=== PATIENT | female | born 1965 | race Caucasian/White ===

== ENCOUNTER → 2018-06-18 15:16 | Outpatient (CLI) | payer MEDICARE ==
[2014-11-18 13:13] VITALS: BMI 32.3
[~2018-06-18 15:16] MED LIST: DYAZIDE 37.5/251 CAP PO; EFFEXOR75 MG PO; ENDOCET 10-3251 TAB PO; KLONOPIN1 MG PO; NORCO 10/325 TA1 TA1 PO; OXYCONTIN15 MG PO; PERCOCET 10/3251 TA1 PO; PREVACID30 MG PO; PRINIVIL20 MG PO; PROTONIX40 MG PO; TOPROL XL200 MG PO; ZOFRAN8 MG PO
[2018-06-18 17:32] LABS: BASOPHILS 0.3 % (0-2); EOSINOPHILS 1.1 % (0-7); HEMOGLOBIN 13.6 g/dL (12-16); IMMATURE GRANULOCYTES 0.2 % (0-5); LYMPHOCYTES 38.9 % (15-50); MCH 29.5 pg (26.0-34.0); MCV 86.8 fL (80.0-100.0); MEAN PLATELET VOLUME 10.6 fL (7.4-10.4); NEUTROPHILS 54.5 % (40-80); PLATELET COUNT 194 10x3/uL (130-400); RBC 4.61 10x6/uL (4.00-5.40); RDW 12.7 % (11.5-14.5); WBC 6.3 10x3/uL (4.8-10.8)
[2018-06-18 18:41] LABS: ERYTHROCYTE SEDIMENTATION RATE 10 mm/hr (0-30)
== END | disposition home or self-care (01) ==
LOC: D.LABREF 15:16
PROVIDERS: Orthopaedic Surgery
DX: T84.53XA Infection and inflammatory reaction due to internal right knee prosthesis, initial encounter (principal)

== ENCOUNTER → 2018-06-27 10:37 | Outpatient (CLI) | payer MEDICARE, BC ==
[2014-11-18 13:13] VITALS: BMI 32.3
--- NOTE | ~2018-06-27 | HEMODYNAMI ---
PATIENT:JOVON WILLIAM MEDICAL RECORD: [id number] : 61 LOCATION:[facility] ADMISSION DATE: 06/27/18 Generatedon:06/27/201812:16 Patient name: JOVON WILLIAM Patient #: [id number] SSN: DO B: 1965 Date of study: 06/27/2018 Page: Of Hemodynamic Procedure Report Patient Data Patient Demographics Procedure consent was obtained First Name: JOVON Gender: Female Last Name: STEWART : 1965 Patient #: [id number] Age: 53 year(s) Race: Unknown Additional ID: [id number] Contact details Address: [address] [place] [address] rd State: [place] City: [place] Zip code: [address] Admission Admission Data Admission Date: 06/27/2018 Admission Time: 10:37 Procedure Procedure Types Cath Procedure Peripheral Cath Diagnostic Procedure Miscellaneous Aspiration/Injection (Joint) Procedure Description Procedure Date Procedure Date: 06/27/2018 Procedure Start Time: 12:09 Procedure Staff Name Function Tony Tomlin MD Performing Physician Valentina Ojeda Monitor Procedure Data Cath Procedure Fluoroscopy Diagnostic fluoroscopy Total fluoroscopy Time: 0.1 time: 0.1 min min Diagnostic fluoroscopy Total fluoroscopy dose: 0 dose: 0 mGy mGy Contrast Material Contrast Material Type Amount (ml) Isovue 300 0 Hemodynamics Rest Pre Cath Intra NCS Post Cath Procedure Log Time Note 11:48:26 Valentina Ojeda sent for patient. Start room use. 11:48:29 Time tracking: Regular hours (M-F 7:00 - 5:00) 11:48:39 Patient arrived from Other to . Patient is for procedure. 11:49:19 Warm blankets on for patient comfort. 11:50:29 Sterile myelogram tray opended for aspiration of right shoulder. 11:50:32 Correct patient and procedure confirmed by team. 11:50:35 Signed procedure consent form obtained from patient. 11:50:39 Full Disclosure recording started 11:50:40 - 11:50:58 Right Chest was prepped with betadine and draped in sterile fashion. 11:51:06 Alarms reviewed . 11:51:07 Sharps counted by scrub and verified . 12:00:44 Sedation plan: Local Anesthetic Medication:Lidocaine 12:01:14 Physician arrived 12:01:17 --------ALL STOP TIME OUT------ 12:01:20 Final Timeout: patient, procedure, and site verified with staff and physician. All members of the team are in agreement. 12:01:28 Right chest site verified by team. 12:02:18 Procedure started. 12:02:27 Rt shoulder area lidocaine injected. 12:04:50 Rt shoulder fluid is aspirated using 20 ga. 3.5 needle. 12:05:18 Procedure ended.(Physican Out) 12:13:11 Fluoroscopy time 00.10 minutes. 12:13:16 Flurop Dose total: 0 12:13:16 Fluoroscopy dose: 0 mGy 12:13:27 Contrast amount:none 12:13:44 Sharps counted by scrub and verified . 12:14:14 Post Chest area:stable 12:14:19 Post procedure instruction explained to patient.Patient verbalizes understanding. 12:14:24 Procedure and supply charges have been captured, reviewed, submitted an d are correct. 12:14:30 See physician's report for complete and final results. 12:14:38 Patient transfered to Other with Ambulatory. Signature Audit [place] Stage Time Signature Unsigned Intra-Procedure 06/27/2018 Valentina 12:16:04 PM Lynette Signatures Monitor : Valentina Signature : Lynette Date : Time : [facility] [address] [id number]
[2018-06-27 18:06] LABS: EOS BF 1 %; MACROPHAGES BF 4 %; MESOTHELIALS BF 4 %; NEUT - BF 9 %
[2018-06-27 19:01] LABS: PROTEIN - BODY FLUID 3.7 G/DL
== END | disposition home or self-care (01) ==
LOC: D.SP 10:37 → D.RAD 11:00
PROVIDERS: Orthopaedic Surgery
DX: T84.89XA Other specified complication of internal orthopedic prosthetic devices, implants and grafts, initial encounter (principal)

== ENCOUNTER → 2018-07-08 10:05 | Outpatient (CLI) | payer MEDICARE, BC ==
[2014-11-18 13:13] VITALS: BMI 32.3
== END | disposition home or self-care (01) ==
LOC: D.NM 07-01 09:45
DX: M25.511 Pain in right shoulder (principal)

== ENCOUNTER 2018-11-03 12:35 | Inpatient (IN) | payer MEDICARE, BC ==
[2018-10-31 09:54] LABS: CALC OSMOLALITY 282 mosm/kg (275-300); CALCIUM 9.1 mg/dL (8.5-10.1); CARBON DIOXIDE 22.8 mmol/L (21.0-32.0); CHLORIDE - SERUM 105 mmol/L (98-107); CREATININE - SERUM 0.7 mg/dL (0.6-1.3); GLUCOSE 106 mg/dL (74-106); POTASSIUM - SERUM 3.8 mmol/L (3.5-5.1); SODIUM 141 mmol/L (136-145); UREA NITROGEN 18 mg/dL (7-18); eGFR NON AFRICAN AMERICAN > 90 mL/min (90-120)
[2018-10-31 09:55] LABS: APTT 30.4 SECONDS (22.8-39.4); INR 1.04 (0.85-1.17); PROTIME 13.1 SECONDS (11.6-15.0)
[2018-10-31 10:17] LABS: BASOPHILS 0.3 % (0-2); EOSINOPHILS 0.7 % (0-7); HEMATOCRIT 43.4 % (36.0-48.0); HEMOGLOBIN 14.6 g/dL (12-16); IMMATURE GRANULOCYTES 0.3 % (0-5); LYMPHOCYTES 27.5 % (15-50); MCH 29.5 pg (26.0-34.0); MCHC 33.6 g/dL (31.0-37.0); MCV 87.7 fL (80.0-100.0); MEAN PLATELET VOLUME 10.9 fL (7.4-10.4); MONOCYTES 5.4 % (2-11); NEUTROPHILS 65.8 % (40-80); PLATELET COUNT 181 10x3/uL (130-400); RBC 4.95 10x6/uL (4.00-5.40); RDW 12.6 % (11.5-14.5); WBC 7.7 10x3/uL (4.8-10.8)
[2018-10-31 10:54] LABS: APPEARANCE CLEAR (CLEAR); BILIRUBIN NEGATIVE (NEGATIVE); COLOR YELLOW (YELLOW); GLUCOSE NEGATIVE (NEGATIVE); KETONE NEGATIVE (NEGATIVE); NITRITE NEGATIVE (NEGATIVE); PROTEIN NEGATIVE (NEGATIVE); SPECIFIC GRAVITY 1.015 (1.005-1.020); UROBILINOGEN NORMAL (NORMAL)
[2018-10-31 10:55] LABS: BACTERIA FEW /hpf (NONE SEEN); EPITHELIAL CELLS OCC /hpf (0-5); MUCUS <1+ /lpf (NONE SEEN); RED CELLS - URINE OCC /hpf (0-5)
[~2018-11-03] VITALS: Ht 162.6 cm; Wt 62.7 kg
[~2018-11-03 12:35] MED LIST changes: +APRISO0.375 GM PO; +CYMBALTA60 MG PO
[2018-11-03] MEDS ORDERED: BENTYL10 MG PO (13:52)
[2018-11-03 14:01] VITALS: BP 135/83; BMI 23.9
--- NOTE | 2018-11-03 18:00 | NUR ---
RECEIVED PATIENT FROM RECOVERY ROOM. VITAL SIGNS STABLE. PATIENT A&O. ACCOMPANIED BY FAMILY. ASSUMED CARE.
[2018-11-03 18:02] VITALS: BP 107/69
--- NOTE | 2018-11-03 19:00 | NUR ---
PT IN BED IN LOW FOWLERS POSITION. RESPIRATIONS EVEN AND UNLABORED. VS STABLE AND AFEBRILE. NO VISUAL CUES OF DISTRESS NOTED. WILL CONTINUE TO MONITOR.
[2018-11-03 20:00] VITALS: BP 100/65
[2018-11-04 04:00] VITALS: BP 97/54
[2018-11-04 06:38] LABS: HEMOGLOBIN 11.5 g/dL (12-16); MCH 28.7 pg (26.0-34.0); MCHC 31.9 g/dL (31.0-37.0); MCV 89.8 fL (80.0-100.0); MEAN PLATELET VOLUME 10.3 fL (7.4-10.4); RBC 4.01 10x6/uL (4.00-5.40); RDW 12.8 % (11.5-14.5); WBC 7.4 10x3/uL (4.8-10.8)
[2018-11-04 07:06] LABS: BASOPHILS 0.1 % (0-2); EOSINOPHILS 0.9 % (0-7); HEMATOCRIT 35.3 % (36.0-48.0); HEMOGLOBIN 11.4 g/dL (12-16); IMMATURE GRANULOCYTES 0.4 % (0-5); LYMPHOCYTES 18.3 % (15-50); MCHC 32.3 g/dL (31.0-37.0); MCV 89.8 fL (80.0-100.0); MEAN PLATELET VOLUME 10.5 fL (7.4-10.4); MONOCYTES 5.2 % (2-11); NEUTROPHILS 75.1 % (40-80); PLATELET COUNT 154 10x3/uL (130-400); RBC 3.93 10x6/uL (4.00-5.40); RDW 12.7 % (11.5-14.5); WBC 7.5 10x3/uL (4.8-10.8)
[2018-11-04 07:10] LABS: CALC OSMOLALITY 278 mosm/kg (275-300); CALCIUM 8.2 mg/dL (8.5-10.1); CARBON DIOXIDE 24.5 mmol/L (21.0-32.0); CHLORIDE - SERUM 105 mmol/L (98-107); CREATININE - SERUM 0.6 mg/dL (0.6-1.3); GLUCOSE 104 mg/dL (74-106); POTASSIUM - SERUM 3.6 mmol/L (3.5-5.1); SODIUM 140 mmol/L (136-145); UREA NITROGEN 12 mg/dL (7-18); eGFR NON AFRICAN AMERICAN > 90 mL/min (90-120)
--- NOTE | 2018-11-04 08:00 | NUR ---
A/A/OX4. REQUESTS PAIN MED FOR PAIN RATED AT 9/10 RIGHT SHOULDER. DRESSING C/D/I WITH ICE PACK IN PLACE. DIALUDID COMPUTER PROJECT MANAGER IS COMPLETED AND PT WILL RECEIVE NORCO FOR PAIN. PT STATES SHE WANTS PERCOCET THAT IS WHAT SHE TAKES AT HOME. INFORMED CALL PUT IN TO DR. WENDI ELISE TO ASK ABOUT THE PERCOCET. NO OTHER REQUESTS OR COMPLAINTS. STATES SHE IS HOPING TO GET TO GO HOME TODAY. PT SITS UP ON SIDE OF BED AND WALKS TO BATHROOM WITHOUT DIFFICULTY. DENIES ANY DIZZINESS WHEN UP. WILL CONTINUE POC.
[2018-11-04 09:24] VITALS: BP 98/60
--- NOTE | 2018-11-04 11:35 | MORECARE ---
CASE MANAGEMENT DISCHARGE SUMMARY PATIENT: JOVON ESPINOZA UNIT: [id number] ADM DATE: 11/03/18 AGE: 53 : 61 SEX: F ROOM/BED: D.2224 AUTHOR: MARI,DOC PHYSICIAN: REFERRING PHYSICIAN: ANTELMO DENNY MD DATE OF SERVICE: 11/04/18 Discharge Plan Patient Name: JOVON ESPINOZA Facility: [facility]:[place] : 1965 Planned Disposition: Home Anticipated Discharge Date: Discharge Date: Expected LOS: Initial Reviewer: [email or web address] Initial Review Date: 11/04/2018 Generated: 11/04/18 12:35 pm Comments DCP- Discharge Planning Updated by [email or web address]: Monserrat Otero on 11/04/18 10:[address] Patient Name: JOVON ESPINOZA Admission Status: Elective Accout number: [id number] Admission Date: 11-03-2018 : 1965 Admission Diagnosis: Attending: ANTELMO DENNY Current LOS: 1 Anticipated DC Date: Planned Disposition: Home Primary Insurance: MEDICARE A & B Discharge Planning Comments: CM met with patient to complete initial dc planning assessment. CM educated patient on the CM role and verbal consent given by patient to complete assessment. Patient lives at home with her spouse. At discharge patient plans to return and feels this is a safe discharge. CM discussed availability of home health, rehab services, and medical equipment. Patient denied known discharge needs at this time. States her will take her home on discharge. CM will continue to follow and will assist as needed with dc plans/needs. Library Historian: Monserrat Otero DCPIA - Discharge Planning Initial Assessment Updated by [email or web address]: Monserrat Otero on 11/04/18 11:24 am * Is the patient Alert and Oriented? Yes * PCP Dr. Sousa * Pharmacy [facility] in [place] * Preadmission Environment Home with Family * ADLs Independent * Equipment Other Rolling Walker * Other Equipment Sling * List name and contact numbers for known caregivers / representatives who currently or will assist patient after discharge: Ole Espinoza - spouse - [phone] * Verbal permission to speak to the caregivers and representatives has been obtained from the patient. Yes * Community resources currently utilized None * Additional services required to return to the preadmission environment? No * Can the patient safely return to the preadmission environment? Yes * Has this patient been hospitalized within the prior 30 days at any hospital? No Patient Name: JOVON ESPINOZA Page [id number] at 1135 All edits/amendments must be made on the electronic document DICTATION DATE: 11/04/181133 NUT SHELLER MACHINE OPERATOR: LUIS 11/04/181133 RPT#: [id number] DC DATE: STATUS: ADM IN [facility] [address] [place] [address] END OF REPORT
[2018-11-04 12:00] VITALS: BP 116/78
[2018-11-04 12:20] VITALS: BP 98/60; Ht 162.6 cm; Wt 62.7 kg
--- NOTE | 2018-11-04 17:17 | NUR ---
CERNER ANALYST NOTE- RIGHT SHOULDER IN SLING. DRESSING CDI. PAIN LEVEL AT A 7 CURRENTLY. SITTING ON SIDE OF THE BED. UP AD EVELIA. IV AT 75 TO LEFT SUBCLAVIAN INFUSAPORT. DRESSING CDI, PATENT, ORANGE CAPS ON. NO FURTHER NEEDS AT THIS TIME
[2018-11-04 17:43] VITALS: BP 116/70
--- NOTE | 2018-11-04 19:45 | NUR ---
LYING IN BED. ALERT AND ORIENTED X4. ANXIOUS. RESP IRREGULAR. SOB WITH MIN EXERTION. O2 @ 1.5L/NC. BBS CTA WITH EXP WHEEZES IN BLL. RATES PAIN IN RT SHOULDER 9. DRSG AND IMMOBILIZER NOTED TO RT SHOULDER. 1+ EDEMA NOTED TO BLE. 1/2 NS @ 75 ML/HR INFUSING IN LT CW MEDIPORT. SCDS TO BLE. SR ELEVATED X2. CL IN REACH.
[2018-11-04 20:00] VITALS: BP 100/61
--- NOTE | 2018-11-05 00:04 | NUR ---
MEDICATED WITH PERCOCET AND KLONOPIN ORDERED FOR PAIN AND ANXIETY. CL IN REACH.
--- NOTE | 2018-11-05 00:05 | NUR ---
HAS BEEN RESTING WELL SO FAR TONIGHT. CL IN REACH. NO DISTRESS.
[2018-11-05 04:00] VITALS: BP 117/68
[2018-11-05 05:54] LABS: HEMATOCRIT 34.3 % (36.0-48.0); HEMOGLOBIN 11.2 g/dL (12-16); MCH 29.1 pg (26.0-34.0); MCHC 32.7 g/dL (31.0-37.0); MCV 89.1 fL (80.0-100.0); MEAN PLATELET VOLUME 10.7 fL (7.4-10.4); RBC 3.85 10x6/uL (4.00-5.40); RDW 12.7 % (11.5-14.5); WBC 6.4 10x3/uL (4.8-10.8)
[2018-11-05] MEDS ORDERED: HYDROCODON-ACE1 EA10 PO (09:25)
[2018-11-05 09:51] VITALS: BP 128/92
--- NOTE | 2018-11-05 11:12 | MORECARE ---
CASE MANAGEMENT DISCHARGE SUMMARY PATIENT: JOVON ESPINOZA UNIT: [id number] ADM DATE: 11/03/18 AGE: 53 : 61 SEX: F ROOM/BED: D.2224 AUTHOR: MARIDOC PHYSICIAN: REFERRING PHYSICIAN: ANTELMO DENNY MD DATE OF SERVICE: 11/05/18 Discharge Plan Patient Name: JOVON ESPINOZA Facility: [facility]:[place] : 1965 Planned Disposition: Home Anticipated Discharge Date: Discharge Date: Expected LOS: Initial Reviewer: [email or web address] Initial Review Date: 11/04/2018 Generated: 11/05/18 12:12 pm Comments DCP- Discharge Planning Updated by [email or web address]: Monserrat Otero on 11/05/18 10:[address] Patient Name: JOVON ESPINOZA Encounter No: [id number] : 1965 Primary Insurance: MEDICARE A & B Anticipated DC Date: Planned Disposition: Home External Planned Provider: : DCP follow-up note: Patient and family in agreement with discharge plan. No changes to plan. Case management will follow and assist as needed. Monserrat Otero DCP- Discharge Planning Updated by [email or web address]: Monserrat Otero on 11/04/18 10:[address] Patient Name: JOVON ESPINOZA Admission Status: Elective Accout number: [id number] Admission Date: 11-03-2018 : 1965 Admission Diagnosis: Attending: ANTELMO DENNY Current LOS: 1 Anticipated DC Date: Planned Disposition: Home Primary Insurance: MEDICARE A & B Discharge Planning Comments: CM met with patient to complete initial dc planning assessment. CM educated patient on the CM role and verbal consent given by patient to complete assessment. Patient lives at home with her spouse. At discharge patient plans to return and feels this is a safe discharge. CM discussed availability of home health, rehab services, and medical equipment. Patient denied known discharge needs at this time. States her will take her home on discharge. CM will continue to follow and will assist as needed with dc plans/needs. Quality Control Engineer: Monserrat Otero DCPIA - Discharge Planning Initial Assessment Updated by [email or web address]: Monserrat Otero on 11/04/18 11:24 am * Is the patient Alert and Oriented? Yes * PCP Dr. Sousa * Pharmacy [facility] in [place] * Preadmission Environment Home with Family * ADLs Independent * Equipment Other Rolling Walker * Other Equipment Sling * List name and contact numbers for known caregivers / representatives who currently or will assist patient after discharge: Ole Espinoza - spouse - [phone] * Verbal permission to speak to the caregivers and representatives has been obtained from the patient. Yes * Community resources currently utilized None * Additional services required to return to the preadmission environment? No * Can the patient safely return to the preadmission environment? Yes * Has this patient been hospitalized within the prior 30 days at any hospital? No Last DP export: 11/04/18 10:35 am Patient Name: JOVON ESPINOZA Page [phone] at 1112 All edits/amendments must be made on the electronic document DICTATION DATE: 11/05/18 1111 SALESFORCE TRAINER: LUIS 11/05/18 1111 RPT#: [id number] DC DATE: STATUS: ADM IN [facility] [address] [place] [address] END OF REPORT
--- NOTE | 2018-11-06 07:13 | MORECARE ---
CASE MANAGEMENT DISCHARGE SUMMARY PATIENT: JOVON ESPINOZA UNIT: [id number] ADM DATE: 11/03/18 AGE: 53 : 61 SEX: F ROOM/BED: D.2224 AUTHOR: OSCAR GUERRA PHYSICIAN: REFERRING PHYSICIAN: ANTELMO DENNY MD DATE OF SERVICE: 11/06/18 Discharge Plan Patient Name: JOVON ESPINOZA Facility: [facility]:[place] : 1965 Planned Disposition: Home Anticipated Discharge Date: Discharge Date: 11/05/2018 Expected LOS: 0 Initial Reviewer: [email or web address] Initial Review Date: 11/04/2018 Generated: 11/06/18 8:13 am Comments DCP- Discharge Planning Updated by [email or web address]: Monserrat Otero on 11/05/18 10:[address] Patient Name: JOVON ESPINOZA Encounter No: [id number] : 1965 Primary Insurance: MEDICARE A & B Anticipated DC Date: Planned Disposition: Home External Planned Provider: : DCP follow-up note: Patient and family in agreement with discharge plan. No changes to plan. Case management will follow and assist as needed. Monserrat Otero DCP- Discharge Planning Updated by [email or web address]: Monserrat Otero on 11/04/18 10:[address] Patient Name: JOVON ESPINOZA Admission Status: Elective Accout number: [id number] Admission Date: 11-03-2018 : 1965 Admission Diagnosis: Attending: ANTELMO DENNY Current LOS: 1 Anticipated DC Date: Planned Disposition: Home Primary Insurance: MEDICARE A & B Discharge Planning Comments: CM met with patient to complete initial dc planning assessment. CM educated patient on the CM role and verbal consent given by patient to complete assessment. Patient lives at home with her spouse. At discharge patient plans to return and feels this is a safe discharge. CM discussed availability of home health, rehab services, and medical equipment. Patient denied known discharge needs at this time. States her will take her home on discharge. CM will continue to follow and will assist as needed with dc plans/needs. Bus Van Driver: Monserrat Otero DCPIA - Discharge Planning Initial Assessment Updated by [email or web address]: Monserrat Otero on 11/04/18 11:24 am * Is the patient Alert and Oriented? Yes * PCP Dr. Sousa * Pharmacy [facility] in [place] * Preadmission Environment Home with Family * ADLs Independent * Equipment Other Rolling Walker * Other Equipment Sling * List name and contact numbers for known caregivers / representatives who currently or will assist patient after discharge: Ole Espinoza - spouse - [phone] * Verbal permission to speak to the caregivers and representatives has been obtained from the patient. Yes * Community resources currently utilized None * Additional services required to return to the preadmission environment? No * Can the patient safely return to the preadmission environment? Yes * Has this patient been hospitalized within the prior 30 days at any hospital? No Last DP export: 11/05/18 10:12 am Patient Name: JOVON ESPINOZA Page [phone] at 0713 All edits/amendments must be made on the electronic document DICTATION DATE: 11/06/18711 MAIL TELLER: LUIS 11/06/18711 RPT#: [id number] DC DATE:11/05/18 STATUS: DIS IN [facility] [address] [place] [address] END OF REPORT
--- NOTE | 2018-11-06 13:38 | OP ---
PATIENT NAME: JOVON WILLIAM MEDICAL RECORD: [id number] :[birth year] LOCATION:D.[facility]24 ADMISSION DATE:11/03/18 SURGEON: ANTELMO DENNY MD DATE OF OPERATION: 11/03/2018 PREOPERATIVE DIAGNOSES: 1. 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 2. Loose retained hardware of the right shoulder. POSTOPERATIVE DIAGNOSES: 1. 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 2. Loose retained hardware of the right shoulder. PROCEDURES: 1. Revision, reverse total shoulder arthroplasty, single component. 2. Removal of retained hardware. SURGEON: Antelmo Denny MD CAPTAIN ROOM SERVICE: JUVE Salgado INTRAOPERATIVE COMPLICATIONS: None. SUMMARY OF PATHOLOGIC FINDINGS: The patient had had a prior Latarjet and components of that Latarjet were not removed and not thought to be problematic; however, overtime, it did become problematic. One of the screws of the inferior portion of the Latarjet broke off and the patient had residual portion of loose bone anteriorly causing the patient pain. There was no evidence of infection and no evidence of instability; however, it did appear that the patient had developed bony prominences on the humeral side in response to touching the bony prominences on the humeral side. Both were removed, resulting in excellent range of motion without impingement. IMPLANTS PUT IN TODAY: Tornier 9 polyethylene constricted. IMPLANTS REMOVED: Small compression screw along with substantial amounts of anterior bone from a previous Latarjet. OPERATIVE SUMMARY IN DETAIL: After obtaining the appropriate preoperative orthopedic surgery consent as well as anesthetic consultation, evaluation, and clearance, the patient was brought to the operating room and placed on the operating table in the supine position. After adequate general laryngeal mask airway was administered, the patient was placed in beachchair position. All pressure points were well padded. She was held firmly to the operating table using the vacuum pack suction system. Right upper extremity and shoulder were then prepped and draped in routine sterile fashion. Arm was held in Trimano arm holding device. Deltopectoral incision was made over the previous incision and taken down to the level of the clavipectoral fascia, which was gently incised. The deltoid was freed up from the superior aspect, resulting in good retraction of the deltoid. The conjoined tendon likewise was freed up and retracted. Subscapularis was taken down. This was essentially a cuff sparing reverse total shoulder primarily. The cuff was again spared. The subscapularis was taken down, and with some degree of trepidation, the reverse was dislocated and polyethylene was removed. At this point, exploring the wound showed the patient to have significant remainder of her Latarjet procedure. This was removed in OPERATIVE REPORT [id number] JOVON WILLIAM its entirety along with the screw of the very inferior aspect of it. Trial 9 was then put back into place, taken through range of motion, and found to be excellent without evidence of impingement. Small bony prominence on the humerus was taken down likewise. Copious irrigation was then followed by placing the 9 polyethylene component. The reverse total shoulder was reduced, taken through range of motion, and found to be stable in all planes without impingement or liftoff. Subscapularis was then reapproximated back to the lesser tuberosity. The subscapularis to supraspinatus interval was closed, all done by Ted Greene. Also, Ted Greene closed the skin with #1 Vicryl, 2-0 Vicryl, and skin yanira. Sterile dressings were applied. The patient was awakened and taken to the recovery room in stable condition. All final needle and sponge counts were correct. TRANSINT:[id number] Voice Confirmation ID: [id number] DOCUMENT ID: [id number] EDUIN FLORES, ANTELMO MCKENNA at 1338 CC: [id number] DICTATION DATE: 11/03/18 1635 CATHODIC PROTECTION TECHNICIAN: 11/03/18 2143 DIS IN 11/05/18 [facility] [address] [id number]
== END 2018-11-05 13:15 | disposition home or self-care (01) | DRG 483 ==
LOC: D.OPS 12:35 → D.MS 17:42 → D.OPS 17:43 → D.MS 11-05 13:15
PROVIDERS: Anesthesiology; ADMIT Orthopaedic Surgery; ATTEND Orthopaedic Surgery
PROC: 0RPJ0JZ Removal of Synthetic Substitute from Right Shoulder Joint, Open Approach (ICD-10-PCS; 2018-11-03)
PROC: 0RRJ0J6 Replacement of Right Shoulder Joint with Synthetic Substitute, Humeral Surface, Open Approach (ICD-10-PCS; principal; 2018-11-03 14:30)
DX: T84.038A Mechanical loosening of other internal prosthetic joint, initial encounter (principal); I10 Essential (primary) hypertension; R00.0 Tachycardia, unspecified; G62.9 Polyneuropathy, unspecified

== ENCOUNTER → 2019-01-08 10:41 | Outpatient (CLI) | payer MEDICARE, BC ==
[2018-11-04 12:20] VITALS: BMI 23.7
[~2019-01-08 10:41] MED LIST changes: +BENTYL10 MG PO; +HYDROCODON-ACE1 EA10 PO
== END | disposition home or self-care (01) ==
LOC: D.MRI 10:41
PROVIDERS: ATTEND Clinical Nurse Specialist Family Health
DX: M25.561 Pain in right knee (principal)